=== PATIENT | male | born 1980 | race Caucasian/White ===

== ENCOUNTER 2024-08-16 00:18 | Day surgery (SDC) | payer OTHER, SELFPAY ==
[2024-08-03 12:36] VITALS: BMI 30.2
--- OUTSIDE RECORDS SUMMARY | 2024-08-16 00:21 | XMS_ITS | Clinical Summary ---
Author Organization [facility] Address [address] [place] [address] Care Team Providers Care Information Systems Consultant Name Role Phone Pcp, Floyd Morales - Primary Care Provider Un available Source Comments [employer] [facility],non-owned Affiliates and Associated Physician Practices is amultiple site organization consisting of ambulatory clinics and hospital sitesin [place], [place], [place] and [place]. This disclosure is being madepursuant to the Care Everywhere program and may not contain all information available regarding this patient. Last updated 18.[employer] Allergies No known active allergies Medications * Be aware that medications may not be up to date on this document. Alwaysverify current medications with the patient. meloxicam (MOBIC) 7.5 MG tabletIndicatio ns:Chronic pain of right knee Take 1 (one) tablet by mouth once daily 5 tablet 2 Active Additional Information Patient not taking.Reported on 07/17/2022 atorvastatin (Lipitor) 10 MG tabletIndicatio ns:Hyperlipidem ia Take 1 (one) tablet by mouth once daily Reasons: High Amount of Fats in the Blood 90 tablet 3 3 Active ciprofloxacin-h ydrocortisone (Cipro HC) 0.2-1 % otic suspension Instill 3 (three) drops into right ear 2 times daily 3 mL 3 Active metFORMIN (Glucophage) 1000 MG tabletIndicatio ns:Type 2 diabetes mellitus without complication, without long-term current use of insulin (HCC) TAKE 1 TABLET BY MOUTH TWICE DAILY WITH MORNING MEAL AND WITH EVENING MEAL. APPOINTMENT REQUIRED FOR FUTURE REFILLS Strength: 1,000 mg 180 tablet 3 3 Active Active Problems Problem Noted Date Diagnosed Date Hyperlipidemia 08/11/2018 Type 2 diabetes mellitus wit hout complication, without long-term current use of insulin 02/26/2018 Class 1 obesity due to exces s calories with serious comorbidity and body mass index (BMI) of 32.0 to 32.9 in adult 02/26/2018 Immunizations Immunization Administration Dates Next Due Covid Moderna primary monovalent 12+ yr 0.5mL ,06/20/2020 INFLUENZA VACCINE, QUADR. (F LUZONE; FLULAVAL; FLUARIX; AFLURIA QUADRIVALENT; 6MO+), 0.5 ML (IIV4) 02/10/2018 PNEUMOCOCCAL PPSV23 02/26/2018 TDAP (7yrs+) 10/02/2012,10/02/2012 Family History Medical History Relation Name Comments Diabetes - Type 1 Father Cancer - Liver Maternal Grandfather Cancer - Stomach Maternal Grandmother Brain Tumor Paternal Grandfather Cancer - Breast Paternal Grandmother Relation Name Status Comments Brother 1 Alive Brother 2 Alive Brother 3 Alive Father Alive Maternal Grandfather Maternal Grandmother Mother Alive Paternal Grandfather Paternal Grandmother Sister Alive Social History Tobacco Use Types Packs/Day Years Used Date Smoking Tobacco: Every Day Cigarettes 0.5 4 Smokeless Tobacco: Never Tobacco Cessation:Ready to Q uit: Not Asked; Counseling Given: Not Answered Alcohol Use Standard Drinks/Week Comments No 0 (1 standard drink = 0.6 oz pur e alcohol) PHQ-2 Answer Date Recorded PHQ2 TOTAL SCORE 0 07/17/2022 Sex and Gender Information Value Date Recorded Sex Assigned at Male 01/03/2024 6:23 PM CDT Legal 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 Gender Identity Male 01/03/2024 6:23 PM CDT Sexual Orientation Not on file 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 Not on file Not on file Not on file Last Filed Vital Signs Vital Sign Reading Time Taken Comments Blood Pressure 108/74 07/17/2022 11:16 AM CDT Pulse 61 07/17/2022 11:16 AM CDT Temperature 37 C (98.6 F) 08/11/2018 11:28 AM CDT Respiratory Rate 14 08/11/2018 11:28 AM CDT Oxygen Saturation 98% 07/17/2022 11:16 AM CDT Inhaled Oxygen Concentration - - Weight 110.2 kg (243 lb) 07/17/2022 11:16 AM CDT Height 188 cm (6' 2 ) 07/17/2022 11:16 AM CDT Body Mass Index 31.2 07/17/2022 11:16 AM CDT Plan of Treatment Health Maintenance Due Date Last Done Comments COLOGUARD (AGES 45-75) - COLON CA SCREENING 1978 COLON MONITORING 1978 COLONOSCOPY - COLON CA SCREENING 1978 CT COLONOGRAPHY - COLON CA SCREENING 1978 Colorectal Cancer Screening 1978 FIT - COLON CA SCREENING 1978 FLEX SIG - COLON CA SCREENING 1978 HIV SCREENING 1993 HEPATITIS C SCREENING 07/02/1996 HEPATITIS B VACCINE (1 of 3 - 19+ 3-dose series) 1997 PNEUMOCOCCAL VACCINE (2 of 2 - PCV) 02/26/2019 02/26/2018 DIABETES-FOOT EXAM WITH MONOFILAMENT 04/03/2021 04/03/2020, 08/11/2018 DTAP/TDAP/TD VACCINES (3 - Td or Tdap) 10/02/2022 10/02/2012, 10/02/2012 DIABETES-HGB A1C 01/17/2023 07/17/2022, , 04/03/2020, Additional history exists DIABETES-SERUM CREATININE 07/19/20232022, 07/18/2022, 07/17/2022, Additional history exists COVID-19 VACCINE ( season) 2023 07/18/2020, 06/20/2020 DEPRESSION SCREENING 04/20/2024 07/17/2022, 06/10/19 22 DIABETES - URINE PROTEIN SCREENING 04/20/2024 07/17/2022, 06/10/2021, 04/03/2020, Additional history exists DIABETES RETINOPATHY SCREENING 12/03/2024 12/03/2022, 10/18/2021 (Done Outside Per Patient) INFLUENZA VACCINE (Season Ended) 2024 02/10/2018 ZOSTER VACCINE (1 of 2) 2028 HIB VACCINE Aged Out No longer eligi ble based on patient's age to complete this topic HPV VACCINE Aged Out No longer eligi ble based on patient's age to complete this topic MENINGOCOCCAL (Group B) VACCINE SHARED DECISION-MAKING Aged Out No longer eligible based on patient's age to complete this topic MENINGOCOCCAL GROUPS A/C/Y/W VACCINE Aged Out No longer eligible based on patient's age to complete this topic Procedures Procedure Name Priority Date/Time Associated Diagnosis Comments MICROALB/CREAT RATIO URINE RANDOM PANEL Routine 07/17/2022 11:52 AM CDT Type 2 diabetes mellitus without complication, without long-term current use of insulin COMPREHENSIVE METABOLIC PANEL Routine 07/17/2022 11:52 AM CDT Type 2 diabetes mellitus without complication, without long-term current use of insulin HEMOGLOBIN A1C Routine 07/17/2022 11:52 AM CDT Type 2 diabetes mellitus without complication, without long-term current use of insulin from Last 3 Months or Most Recently Relevant to Health Maintenance Results * MICROALB/CREAT RATIO URINE RANDOM PANEL (07/17/2022 11:52 AM CDT) Creatinine Urine 222.36 mg/dL [facility] ACCOUNT BILL Microalbumin Urine 3.9 mg/dL [facility] ACCOUNT BILL Microalbumin/Crea tinine Ratio 17 <30 mg/g [facility] ACCOUNT BILL Urine URINE SPECIMEN OBTAINED BY CLEAN CATCH PROCEDURE / Unknown 07/17/2022 11:52 AM CDT 07/17/2022 Narrative Resulting Agency Comment Lab Testing performed at: [address] [id number] Damián Slaughter MD LAB - URINE CHEMISTRY ORDERABLE S Final Result [facility] ACCOUNT BILL [address] [place] [address] * (ABNORMAL) HEMOGLOBIN A1C (07/17/2022 11:52 AM CDT) Hemoglobin A1c 6.4(H) <5.7 % [facility] ACCOUNT BILL Comment: AVERAGE GLUCOSE MG/DL BLOOD 137 mg/dL HbA1c Interpretation: Normal: < 5.7% Pre-diabetes: 5.7-6.4% Diabetes: Equal to or greater than 6.5% Test results diagnostic of diabetes should be repeated for c onfirmation. Treatment target values recommended by ADA and other clinica l organizations should be used to evaluate metabolic control in patients. This test should not replace glucose testing for patients wi th Type 1 diabetes, pediatric patients, or women. Falsely low HbA The [employer] Bulk Cooler Installer assay for the measurement of HbA1c is a National Glycohemoglobin Standardization Program (NGSP) certified method. Blood BLOOD SPECIMEN / Unknown 07/17/2022 11:52 AM CDT 07/17/2022 Narrative Resulting Agency Comment Lab Testing performed at: [address] [id number] Damián Slaughter MD LAB - CHEMISTRY ORDERABLES Lissette cochran Result [facility] ACCOUNT BILL [address] [place] [address] * (ABNORMAL) COMPREHENSIVE METABOLIC PANEL (07/17/2022 11:52 AM CDT) Glucose 138(H) 70 - 105 mg/dL [facility] ACCOUNT BILL BUN 11 8.9 - 20.6 mg/dL [facility] ACCOUNT BILL Creatinine 0.86 0.72 - 1.25 mg/dL [facility] ACCOUNT BILL eGFR by CKD-EPI >90 >=90 mL/min/1.7 3 m2 [facility] ACCOUNT BILL Sodium 142 136 - 145 mmol/L [facility] ACCOUNT BILL Potassium 4.8 3.5 - 5.1 mmol/L [facility] ACCOUNT BILL Chloride 107 98 - 107 mmol/L [facility] ACCOUNT BILL CO2 27 23 - 31 mmol/L [facility] ACCOUNT BILL Calcium 9.3 8.4 - 10.4 mg/dL [facility] ACCOUNT BILL Protein Total 6.7 6.4 - 8.3 gm/dL [facility] ACCOUNT BILL Albumin 4.3 3.5 - 5.2 gm/dL [facility] ACCOUNT BILL Bilirubin Total 0.8 0.2 - 1.2 mg/dL [facility] ACCOUNT BILL Alkaline Phosphatase 77 40 - 150 U/L [facility] ACCOUNT BILL AST 27 5 - 34 U/L [facility] ACCOUNT BILL ALT 44 0 - 61 U/L [facility] ACCOUNT BILL Blood BLOOD SPECIMEN / Unknown 07/17/2022 11:52 AM CDT 07/17/2022 Narrative Resulting Agency Comment Lab Testing performed at: [place] [address] [facility] [id number] Damián Slaughter MD LAB - CHEMISTRY ORDERABLES Lissette sammie Result [facility] ACCOUNT BILL [address] [place] [address] from Last 3 Months or Most Recently Relevant to Health Maintenance Insurance [facility] Care Teams Information Systems Consultant Relationship Specialty Start Date End Date Floyd Deng PCP - General 05/12/23
--- OUTSIDE RECORDS SUMMARY | 2024-08-16 00:21 | XMS_ITS | Data Portability ---
Author Organization [place] [facility] [employer], Main Office Address [address] [place] [address] Care Team Providers Care Utilization Coordinator Name Role Phone JOSEPH CRENSHAW Primary Care Provider [phone] JOSEPH CRENSHAW Referring Provider Assessment Encounter Date Assessment Date Assessment LastModified by Organization Details LastModified Time 04/27/2024 04/27/2024 43-year-old male presents for evaluation of his left shoulder. He reports several months of left arm and shoulder pain. He has pain with sleeping on that side, raising his arm over 90 , and also reports numbness and tingling throughout the entire hand. He denies any acute injury. He currently rates his pain as 5/10. He has not had any treatments. He is right-hand dominant. 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 He has a history diabetes with last A1c level of 7.4. He currently smokes 1 pack a day. Review of systems per patient questionnaire Physical exam: he has positive Spurling's. Range of motion 130/20/lower lumbar. Five 5 rotator cuff strength. Pain with resisted elevation. Positive Marcial's. Positive Carlsbad's. Positive Neer and Peterson. He has positive Tinel's and Phalen's at the wrist. Negative Tinel's at the elbow. X-rays of the shoulder were reviewed, demonstrating no acute bony abnormality He has multiple problems going on. Firstly he has shoulder pain which could be impingement or rotator cuff tendinitis. We will send him to physical therapy and give him a course of meloxicam. Secondly, he has cervical radiculopathy, the meloxicam and PT should also help with that, we will add his C-spine to his PT order as well. Thirdly, he has carpal tunnel syndrome. We will prescribe him a wrist brace to use at night. We will also give him a set of home exercises for carpal tunnel. We will see him back in 6 weeks for recheck. He is in agreement with the plan. [email or web address] Not available 04/27/2024 11:54:09 Plan of Treatment Reminders Order Date Submit Date Provider Last Modified By Organization Details Last Modified Time Details Appointments None recorded. Lab None recorded. Referral physical therapist referral - Please contact pt to schedule apt for L shoulder/n roxie pain. thanks 2024 025 [facility], [address], [place], [address], 08:11:05 Procedures None recorded. Surgeries None recorded. Imaging XR, shoulder, 2 or more view 2024 025 [facility], [address], [place], [address], 14:34:47 Medication Orders Mobic 15 mg tablet 2024 025 [email or web address] [facility], [address], [place], [address], 11:58:10 Patient TargetsNo targets recorded. Patient InstructionsNo instructions recorded. Reason for Referral Physical Therapist Referral for Pain of left shoulder joint L shoulder Please contact pt to schedule apt for L shoulder/neck pain. thanks Referring Physician: Mo Villasenor, Orthopedic Surgery, Encounter Date: 04/27/2024 Results Created Date Observation Date Name Description Value Unit Range Abnormal Flag Note LastModifiedBy Organization Detail LastModifiedTime 04/27/19 25 XR, shoul kaela, 2 or more view No observ ation record ed. [email or web address] [facility] [address], [place], [address], 04/27/2024 10:53:33 Result Notes None recorded. Problems Name Problem SNOMED Code Status Onset Date Resolution Date Notes Provider Name and Address Organization Details Recorded Time Pain of left shoulder joint 9599225031101 9109 Active 2024 Khadra Dueñas, RMA null, MD [facility] [employer] 10:53:42 Cervical radiculopat hy 45605971 Active 2024 Bonita Luismanuel , ATC L null, MD [facility] [employer] 11:22:55 Carpal tunnel syndrome of left wrist 0794870867286 02 Active 2024 Mo Villasenor MD [address] [facility], [facility] [address], [place], [address] [place] [address] [facility] [employer] 5 10:12:11 Problem Notes None recorded. Procedures Surgical History None recorded. Imaging Results Imaging Date Name Status LastModified by Organiz ation Details LastModified Time 04/27/2024 XR, shoulder, 2 or more view completed [email or web address] [facility] [address], [place], [address], 04/27/2024 10:53:33 Procedure Notes None recorded. Medical Equipment None Reported. Medications Name Sig Start Date Stop Date Status Note LastModified by Organization Details LastModified Time sildenafil 50 mg tablet TAKE ONE TABLET BY MOUTH APPROXIMA TELY ONE HOUR BEFORE SEXUAL ACTIVITY. DO NOT USE MORE THAN ONE DOSE DAILY 04/27 completed Not Available Not Available Not Available meloxicam 15 mg tablet Take 1 tablet every day by oral route. active Not Available Not Available No t Available metformin 1,000 mg tablet TAKE 1 TABLET BY MOUTH TWICE DAILY WITH MORNING MEAL AND WITH EVENING MEAL active Not Available Not Available No t Available nystatin 100,000 unit/gram topical cream APPLY CREAM TOPICALLY TO AFFECTED AREA TWICE DAILY 04/27 completed Not Available Not Available Not Available rosuvastati n 10 mg tablet TAKE 1 TABLET BY MOUTH ONCE DAILY active Not Available Not Available No t Available Ozempic 1 mg/dose (4 mg/3 mL) subcutaneou s pen injector INJECT 1MG SUBCUTANE OUSLY ONCE WEEKLY active Not Available Not Available No t Available Vitals Date Recorded Body height Body mass index (BMI) Body weight Pain severity - 0-10 verbal numeric rating [Score] - Reported Provider Name and Address Organization Details Last Updated DateTime 04/27/2024 187.96 cm 28.8 kg/m2 593112.69 g 5 JULIA Sorto [facility] 04/27/2024 10:51:53 Social History Question Answer Notes LastModified by Organizat ion Details LastModified Time Tobacco Smoking Status Current Every Day Smoker JULIA Sorto null, [facility] [employer] [facility] 04/27/2024 10:52:59 What Is Your Level Of Alcohol Consumption? None Information not available 04/27/2024 What Was The Date Of Your Most Recent Tobacco Screening? 04/27/2024 [email or web address] Information not available 04/27/2024 Sex: Unknown Functional Status None recorded. Mental Status None recorded. Family History Relationship Description Onset Age of this Age Resolved Age Notes LastModified by Organization Details LastModified Time Father Diabetes mellitus [email or web address] Not available 2024 10:52:41 Medical History Condition Response DIABETES, TYPE Y Past Encounters Encounter ID Performer Location Encounter Start Date Encounter Closed Date Diagnosis/Indication Diagnosis SNOMED-CT Code Diagnosis ICD10 Code Diagnosis Note [id number] Mo Villasenor MD [facility] [address] [place] [address] 04/27/2024 10:37:01 04/27/2024 11:25:31 Pain of left shoulder joint [id number] 3518518 M25.512 Cervical radiculopathy 99377147 M54.12 Carpal nicko marlene syndrome of left wrist 5496996096 53760 G56.02 Health Concerns Section Related Observation LastModified by Organization Detai ls LastModified Time None Recorded Concern Status LastModified by Organization Details LastModified Time None Recorded Advance Directives Directive None Recorded Payers Encounter Date Sequence Insurance Name Policy Number Policy Ferrer Covered Member ID Ferrer Member ID Guarantor Name 04/27/2024 1 [id number] Rupa Segovia [id number] Rupa Segovia
--- OUTSIDE RECORDS SUMMARY | 2024-08-16 00:21 | XMS_ITS | Clinical Summary ---
Author Organization [facility] Address [address] [place] [phone] Phone Care Team Providers Care Rn Internal Medicine Name Role Phone Mckenzie Slaughter MD Primary Care Provider [phone] Allergies No known active allergies Medications HYDROcodone-delia taminophen (NORCO) 5-325 mg tabletIndicatio ns:Kidney stone Take 1 Tablet by mouth every 8 hours as needed for Break-Through Pain. Max Daily Amount: 3 Tablets 6 Tablet 07/18/2022 3:23 PM CDT 07/18/2022 Active ibuprofen (MOTRIN) 600 mg tablet Take 1 Tablet (600 mg) by mouth every 6 hours as needed for Pain. 20 Tablet 07/18/2022 3:23 PM CDT 07/18/2022 Active ondansetron (ZOFRAN ODT) 4 mg Tablet, Rapid Dissolve Take 1 Tablet (4 mg) by mouth every 8 hours as needed for Nausea/Vomiti ng. Dissolve tablet on top of tongue, then swallow with saliva. 20 Tablet 07/18/2022 3:23 PM CDT 07/18/2022 Active Social History Tobacco Use Types Packs/Day Years Used Date Smoking Tobacco: Never Assessed Feeling Safe Answer Date Recorded Are you in a relationship wi th someone who hurts you emotionally and/or physically? No 07/18/2022 Sex and Gender Information Value Date Recorded Sex Assigned at Not on file Legal Sex Male 12:24 PM CDT Gender Identity Not on file Sexual Orientation Not on file Last Filed Vital Signs Vital Sign Reading Time Taken Comments Blood Pressure 103/69 07/18/2022 2:00 PM CDT Pulse 72 07/18/2022 2:00 PM CDT Temperature 36.7 C (98 F) 07/18/2022 2:00 PM CDT Respiratory Rate 16 07/18/2022 2:00 PM CDT Oxygen Saturation 98% 07/18/2022 2:00 PM CDT Inhaled Oxygen Concentration - - Weight 108.9 kg (240 lb) 07/18/2022 12:40 PM CDT Height 188 cm (6' 2 ) 07/18/2022 12:40 PM CDT Body Mass Index 30.81 07/18/2022 12:40 PM CDT Plan of Treatment Health Maintenance Due Date Last Done Comments DIABETES MICROALBUMIN ANNUAL SCREEN 1996 LDL CHOLESTEROL ANNUAL 1996 HEPATITIS B VACCINES (1 of 3 - 19+ 3-dose series) 1997 DIABETES ANNUAL FOOT EXAM 04/03/2021 04/03/2020 DTAP/TDAP/TD VACCINES (2 - T d or Tdap) 10/02/2022 10/02/2012 DIABETES HBA1C Q 6 MONTHS 01/17/2023 07/17/2022 COLORECTAL SCREENING 07/08/2023 Colorectal Cancer Screening 07/08/2023 FIT-DNA Q 3 years 07/08/2023 FIT/FOBT Q 1 year 07/08/2023 Flex Sig/CT Colonography Q 5 years 07/08/2023 INFLUENZA VACCINE (#1) 2023 02/10/2018 DIABETES ANNUAL RETINAL EXAM 12/04/2023 12/03/2022 COVID-19 Vaccine (3 - 2023-2 5 season) 2023 07/18/2020, 06/20/2020 HPV VACCINES Aged Out No longer eligi ble based on patient's age to complete this topic [place] [address] [place] [address] CHOICE [id number] RX [employer] Member Subscriber Plan / Payer (Ef fective 2022-Present) Name:Rupa Segovia Relation to Subscriber:Self Name:Rupa Segovia Subscriber ID:Not on file Payer ID:Not on file Group ID:[id number] Type:RX Commercial Address: [address] Care Teams Rn Internal Medicine Relationship Specialty [place] [address] [place] [phone] PCP - General Internal Medicine 07/18/22
--- OUTSIDE RECORDS SUMMARY | 2024-08-16 00:21 | XMS_ITS | Referral Summary ---
Author Organization [facility] Address [address] [place] [phone] Care Team Providers Care Irrigation Worker Name Role Phone Alhaji Millan MD Primary Care Provider + Allergies No known active allergies Medications metFORMIN (GLUCOPHAGE) 1,000 mg tablet TAKE 1 TABLET BY MOUTH TWICE DAILY WITH MORNING MEAL AND WITH EVENING MEAL 07/05/2019 Active Active Problems No known active problems Social History Tobacco Use Types Packs/Day Years Used Date Smoking Tobacco: Former Smokeless Tobacco: Former Alcohol Use Standard Drinks/Week Comments Never 0 (1 standard drink = 0.6 oz pur e alcohol) AUDIT-C Answer Date Recorded Q1: How often do you have a drink containing alc ohol? Never 10/31/2019 Average Number of Drinks Not on file 020 Frequency of Binge Drinking Not on file 10/18 Personal Safety Answer Date Recorded Getting School Help Needed Not on file 07/04 Sex and Gender Information Value Date Recorded Sex Assigned at Not on file Legal Sex Male 12:25 PM CDT Gender Identity Not on file Sexual Orientation Not on file Last Filed Vital Signs Vital Sign Reading Time Taken Comments Blood Pressure - - Pulse - - Temperature - - Respiratory Rate - - Oxygen Saturation - - Inhaled Oxygen Concentration - - Weight 111.1 kg (245 lb) 10/31/2019 12:40 PM CDT Height 188 cm (6' 2 ) 10/31/2019 12:40 PM CDT Body Mass Index 31.46 10/31/2019 12:40 PM CDT Plan of Treatment Not on file Insurance [facility] CHO[facility] PL[facility] Care Teams Irrigation Worker Relationship Specialty [place] [address] [place] [address] PCP - General Family Medicine 10/31/19
--- OUTSIDE RECORDS SUMMARY | 2024-08-16 00:21 | XMS_ITS | Clinical Summary ---
Author Organization [facility] Address [address] [place] [address] Care Team Providers Care Sales Planning Manager Name Role Phone Alhaji Millan MD Primary Care Provider + Allergies No known active allergies Medications metFORMIN (GLUCOPHAGE) 1,000 mg tablet TAKE 1 TABLET BY MOUTH TWICE DAILY WITH MORNING MEAL AND WITH EVENING MEAL 07/05/2019 Active Active Problems No known active problems Surgical History Surgery Date Site/Laterality Comments FLUORO GUIDED INJECTION SHOULDER [facility] Medical History Medical History Date Comments Diabetes mellitus (HCC) Social History Tobacco Use Types Packs/Day Years [...] on file Sexual Orientation Not on file Obstetrics History Last Filed Vital Signs Vital Sign Reading [...] Plan of Treatment Not on file Insurance [facility] CHOICE PLUS Care Teams Sales Planning Manager Relationship Specialty [place] [address] [place] [address] PCP - General Family Medicine 10/31/19
[2024-08-16 12:38] VITALS: BP 113/70; PULSE 59; RESP 20; TEMP 35.7; O2SAT 100; BMI 29.3
[2024-08-16] MEDS: LACTATED RINGERS 1,000 ML 150 ML IV CONT (12:47)
--- NOTE | 2024-08-16 12:49 | P.PNAN_ITS ---
Anes - Initial Pre Proc Eval Procedure: Operation Date: 08/16/24 13:30 Proposed Procedures p Screening Colonoscopy - Jason López MD Date/Time: 08/16/24 12:49 Surgeon: Jason López MD Pre Op Diagnosis: Screening Patient Data Age: 44 Gender: M Height: 1.88 m Weight: 103.8 kg Last Vital Signs Temp 96.2 F L 08/16/24 12:38 Pulse 59 L 08/16/24 12:38 Resp 20 08/16/24 12:38 BP 113/70 08/16/24 12:38 Pulse Ox 100 08/16/24 12:38 O2 Del Method Room Air 08/16/24 12:38 Allergies Allergy/AdvReac Type Severity Reaction Status Date / Time No Known Allergies Allergy Verified 08/16/24 12:36 Home Medications ?Medication ?Instructions ?Recorded ?Confirmed ?Type metformin 1,000 mg tablet 1,000 mg PO DAILY 08/03/24 08/16/24 History rosuvastatin 10 mg tablet 10 mg PO DAILY 08/03/24 08/16/24 History Patient hx anesthesia problems: none Family hx anesthesia problems: none Results Review: All pre-operative results and documents have been reviewed as part of the pre- operative evaluation. [facility] Social History Social History Smoking status: Current every day smoker Tobacco type: cigarettes Substance use type: does not use Living arrangements: with family Spiritual care concerns: No Anes - Eval Final PreProcedure Day of Procedure 08/16/24 12:49 Patient weight: obese Heart: regular rate and rhythm Lungs: clear to auscultation Airway: Mallampati scale class II Neurological: alert and oriented Last oral intake: >/= 8 hours ASA classification: III Emergent: no Anesthetic plan: proceed Anesthesia type and monitoring: general GIVS and standard monitoring Results Review: All pre-operative results and documents have been reviewed as part of the pre- operative evaluation. Informed Consent: The patient's anesthetic plan and its attendant risks and benefits were discussed with the patient/family/POA. Questions were solicited and answers provided to the satisfaction of the patient/family/POA.
--- NOTE | 2024-08-16 12:54 | PM.HPGS ---
History of Present Illness History of Present Illness Consent: Risks, benefits, and alternatives have been discussed and questions answered. Patient agrees to proceed with procedure. Chief complaint: Screening Narrative: Rupa Segovia is a 44 year old male with last colonoscopy 13 years ago, had polyp. Review of Systems Review of Systems: All systems reviewed & are unremarkable except as noted in HPI and below PMFSH Past Medical History Medical History (Updated 08/16/24 @ 12:55 by Jason López MD) Colon polyp Social History Social History Smoking status: Current every day smoker Tobacco type: cigarettes Substance use type: does not use Living arrangements: with family Spiritual care concerns: No Meds Home Medications and Allergies Home Medications ?Medication ?Instructions ?Recorded ?Confirmed ?Type metformin 1,000 mg tablet 1,000 mg PO DAILY 08/03/24 08/16/24 History rosuvastatin 10 mg tablet 10 mg PO DAILY 08/03/24 08/16/24 History Allergies Allergy/AdvReac Type Severity Reaction Status Date / Time No Known Allergies Allergy Verified 08/16/24 12:36 Vital Signs Vital Signs - 24 hr 08/16/24 12:38 Temperature 96.2 F L Pulse Rate 59 L Respiratory Rate 20 Blood Pressure 113/70 Pulse Oximetry 100 Oxygen Delivery Room Air Exam Const: General: comfortable and no acute distress HENMT: Face/Nose/Sinus: Normal nares present Eyes: General: appearance normal, both eyes and all related structures Neck: Neck: no JVD Resp: Auscultation: clear to auscultation bilaterally Cardio: Rate: regular rate Rhythm: regular rhythm GI: Inspection: non-distended GI Palp: Yes Soft to palpation Skin: General skin exam: normal color Neuro: General: gait normal Speech: normal speech Extrem: General: normal to inspection Psych: Mental Status: mental status grossly normal Assessment and Plan Assessment and plan (1) Colon polyp: Code(s): K63.5 - Polyp of colon Status: Acute Assessment and Plan: colonoscopy
[2024-08-16 12:55] LABS: Glucose Point of Care 137 mg/dl (65-105)
[2024-08-16 13:10] VITALS: BP 94/61; PULSE 68; RESP 19; O2SAT 97
[2024-08-16 13:20] VITALS: BP 96/62; PULSE 62; RESP 18; O2SAT 97
[2024-08-16 13:30] VITALS: BP 101/59; PULSE 65; RESP 22; O2SAT 100
== END 2024-08-16 13:40 | disposition home or self-care (01) ==
PROVIDERS: PCP Emergency Medicine; Referring Provider Emergency Medicine; Visit Provider Internal Medicine Gastroenterology
PROC: 0DJD8ZZ Inspection of Lower Intestinal Tract, Via Natural or Artificial Opening Endoscopic (ICD-10-PCS; CPT 45378; principal; 2024-08-16 13:30)
DX: Z12.11 Encounter for screening for malignant neoplasm of colon (principal); K63.5 Polyp of colon; F17.210 Nicotine dependence, cigarettes, uncomplicated; E66.9 Obesity, unspecified; Z68.29 Body mass index [BMI] 29.0-29.9, adult; Z79.84 Long term (current) use of oral hypoglycemic drugs
CPT/HCPCS: 45385; 82948; 88305; J2003; J2704; J7120